=== PATIENT | female | born 1975 | race Caucasian/White ===

== ENCOUNTER 2017-04-17 14:20 | Emergency (ER) | payer OTHER ==
[2017-04-17 15:16] LABS: INFLUENZA A PATIENT NEGATIVE (NEGATIVE); INFLUENZA B PATIENT NEGATIVE (NEGATIVE); OBC FLU VALID
== END 2017-04-17 15:32 | disposition home or self-care (01) ==
LOC: ER 14:20
DX: B34.9 Viral infection, unspecified (principal); Z88.6 Allergy status to analgesic agent; Z90.49 Acquired absence of other specified parts of digestive tract; Z98.51 Tubal ligation status
CPT/HCPCS: 87804; 87804-59; 99284

== ENCOUNTER 2018-07-05 12:37 | Emergency (ER) | payer OTHER ==
[~2018-07-05] VITALS: Ht 157.5 cm; Wt 79.4 kg
[~2018-07-05 12:37] MED LIST: ACET325T9 PO; ASPI-482 PO; DIPH25CA58 PO; FEXO1TAB27 PO; FLUT9.9S NS; HYDR-3164 PO; LORA10TA68 PO; OSEL75CA PO
--- NOTE | 2018-07-05 13:51 | PHYS DOC ---
Past Medical History Past Medical History: No Pertinent History Past Surgical History: Cholecystectomy, Tubal ligation Additional Past Surgical Histo: D&C Alcohol Use: Occasionally Drug Use: None Adult General Chief Complaint Chief Complaint: HEADACHE HPI HPI Patient is a 43 year old female who presents with complaining of headache. Patient complaining of global headache for the last 3 days after she woke up as a constant and throbbing pain with radiation to her ear and head and neck without nausea, fever and chills, focal neuro deficit, head injury or history of migraine headache. Patient complaining of mild photophobia. Patient states she took [id number] pain medication without improvement of her pain and rated her pain 7/10. Review of Systems Review of Systems Constitutional: Denies fever or chills [] Eyes: Denies change in visual acuity, redness, or eye pain [] HENT: Denies nasal congestion or sore throat [] Respiratory: Denies cough or shortness of breath [] Cardiovascular: No additional information not addressed in HPI [] GI: Denies abdominal pain, nausea, vomiting, bloody stools or diarrhea [] : Denies dysuria or hematuria [] Musculoskeletal: Denies back pain or joint pain [] Integument: Denies rash or skin lesions [] Neurologic: Reports headache, denies focal weakness or sensory changes [] Endocrine: Denies polyuria or polydipsia [] All other systems were reviewed and found to be within normal limits, except as documented in this note. Current Medications Current Medications Current Medications Medications (Trade) Dose Ordered Sig/Rodri Start Time Stop Time Status Last Admin Dose Admin Dexamethasone Sodium Phosphate (Decadron) 4 mg 1X ONCE 07/05/18 14:15 07/05/18 14:16 DC 07/05/18 14:03 4 MG Diphenhydramine HCl (Benadryl) 25 mg 1X ONCE 07/05/18 14:15 07/05/18 14:16 DC 07/05/18 14:04 25 MG Fentanyl Citrate (Fentanyl 2ml Vial) 50 mcg 1X ONCE 07/05/18 14:15 07/05/18 14:16 DC 07/05/18 14:03 50 MCG Sodium Chloride 1,000 ml @ 1,000 mls/hr 1X ONCE 07/05/18 14:00 07/05/18 14:59 DC 07/05/18 14:04 1,000 MLS/HR Allergies Allergies Allergies Coded Allergies Type Severity Reaction Last Updated Verified NSAIDS (Non-Steroidal Anti-Inflamma Allergy Intermediate bronchial spasms 01/29/14 Yes Physical Exam Physical Exam Constitutional: Well developed, well nourished, mild distress, non-toxic appearance. [] HENT: Normocephalic, atraumatic, oropharynx moist, no oral exudates, nose normal. [] Eyes: PERRLA, EOMI, conjunctiva normal, no discharge. [] Neck: Normal range of motion, no tenderness, supple, no stridor, negative meningeal sign. [] Cardiovascular:Heart rate regular rhythm, no murmur [] Lungs & Thorax: Bilateral breath sounds clear to auscultation [] Abdomen: Bowel sounds normal, soft, no tenderness, no masses, no pulsatile masses. [] Skin: Warm, dry, no erythema, no rash. [] Back: No tenderness, no CVA tenderness. [] Extremities: No tenderness, no cyanosis, no clubbing, ROM intact, no edema. [] Neurologic: Alert and oriented X 3, normal motor function, normal sensory function, no focal deficits noted. [] Psychologic: Affect normal, judgement normal, mood normal. [] Current Patient Data Vital Signs Vital Signs Date Time Temp Pulse Resp B/P (MAP) Pulse Ox O2 Delivery O2 Flow Rate FiO2 07/05/18 13:05 97.8 82 18 117/66 (83) 97 Room Air 97.8 Lab Values Laboratory Tests Test 07/05/18 13:17 White Blood Count 12.2 x10^3/uL (4.0-11.0) H Red Blood Count 4.67 x10^6/uL (3.50-5.40) Hemoglobin 13.6 g/dL (12.0-15.5) Hematocrit 41.7 % (36.0-47.0) Mean Corpuscular Volume 89 fL (79-100) Mean Corpuscular Hemoglobin 29 pg (25-35) Mean Corpuscular Hemoglobin Concent 33 g/dL (31-37) Red Cell Distribution Width 13.0 % (11.5-14.5) Platelet Count 279 x10^3/uL (140-400) Neutrophils (%) (Auto) 66 % (31-73) Lymphocytes (%) (Auto) 28 % (24-48) Monocytes (%) (Auto) 4 % (0-9) Eosinophils (%) (Auto) 2 % (0-3) Basophils (%) (Auto) 1 % (0-3) Neutrophils # (Auto) 8.0 x10^3uL (1.8-7.7) H Lymphocytes # (Auto) 3.4 x10^3/uL (1.0-4.8) Monocytes # (Auto) 0.4 x10^3/uL (0.0-1.1) Eosinophils # (Auto) 0.3 x10^3/uL (0.0-0.7) Basophils # (Auto) 0.1 x10^3/uL (0.0-0.2) Sodium Level 135 mmol/L (136-145) L Potassium Level 3.5 mmol/L (3.5-5.1) Chloride Level 98 mmol/L (98-107) Carbon Dioxide Level 27 mmol/L (21-32) Anion Gap 10 (6-14) Blood Urea Nitrogen 9 mg/dL (7-20) Creatinine 0.7 mg/dL (0.6-1.0) Estimated GFR (Cockcroft-Gault) 90.5 BUN/Creatinine Ratio 13 (6-20) Glucose Level 281 mg/dL (70-99) H Calcium Level 8.6 mg/dL (8.5-10.1) Total Bilirubin 0.2 mg/dL (0.2-1.0) Aspartate Amino Transferase (AST) 11 U/L (15-37) L Alanine Aminotransferase (ALT) 11 U/L (14-59) L Alkaline Phosphatase 126 U/L (46-116) H Total Protein 6.8 g/dL (6.4-8.2) Albumin 3.0 g/dL (3.4-5.0) L Albumin/Globulin Ratio 0.8 (1.0-1.7) L Laboratory Tests 07/05/18 13:17 Laboratory Tests 07/05/18 13:17 EKG EKG [] Radiology/Procedures Radiology/Procedures [] Course & Med Decision Making Course & Med Decision Making Pertinent Labs and Imaging studies reviewed. (See chart for details) Evaluation of patient in ER showed 43-year-old female patient complaining of headache for 3 days. Patient had unremarkable physical exam. CT of head showed sinusitis without acute intracranial finding. Labs showed blood sugar of 281 without history of diabetes mellitus. Patient signed family history of diabetes mellitus and wants to check her blood sugar frequently and follow up with her primary care physician. Patient felt better with treatment in ER and rated her pain 3/10 at time of discharge. Dragon Disclaimer Dragon Disclaimer This electronic medical record was generated, in whole or in part, using a voice recognition dictation system. Departure Departure Impression: Primary Impression: Sinusitis Additional Impressions: Headache Hyperglycemia Elevated liver function tests Disposition: HOME, SELF-CARE (at 1455) Condition: IMPROVED Referrals: NO PCP (PCP) Patient Instructions: General Headache Without Cause, Hyperglycemia, Sinusitis Additional Instructions: Drink plenty of liquids Follow-up with your primary care physician in 3-5 days Return to ER if not getting better Take with your blood sugar and follow up with her primary care physician for possible treatment of diabetes mellitus Scripts Tramadol Hcl (ULTRAM) 50 Mg Tablet 50 MG PO Q6HRS PRN for PAIN, #14 TAB 0 Refills Prov: FREDRICK VITALE MD 07/05/18 Amoxicillin/Potassium Clav (AUGMENTIN 875-125 TABLET) 1 Each Tablet 1 TAB PO Q12HR, #20 TAB Prov: FREDRICK VITALE MD 07/05/18 Problem Qualifiers Primary Impression: Sinusitis Sinusitis location: unspecified location Chronicity: unspecified Qualified Codes: J32.9 - Chronic sinusitis, unspecified Additional Impressions: Headache Headache type: unspecified Headache chronicity pattern: unspecified pattern Intractability: not intractable Qualified Codes: R51 - Headache FREDRICK VITALE MD July 05, 2018 13:51
[2018-07-05 13:55] LABS: BASO # 0.1 x10^3/uL (0.0-0.2); BASO % 1 % (0-3); EOS # 0.3 x10^3/uL (0.0-0.7); EOS % 2 % (0-3); HEMATOCRIT 41.7 % (36.0-47.0); HEMOGLOBIN 13.6 g/dL (12.0-15.5); LYMPH # 3.4 x10^3/uL (1.0-4.8); LYMPH % 28 % (24-48); MEAN CORPUSCULAR HEMOGLOBIN 29 pg (25-35); MEAN CORPUSCULAR HGB CONC 33 g/dL (31-37); MEAN CORPUSCULAR VOLUME 89 fL (79-100); MONO # 0.4 x10^3/uL (0.0-1.1); MONO % 4 % (0-9); NEUT % 66 % (31-73); PLATELET COUNT 279 x10^3/uL (140-400); RED BLOOD COUNT 4.67 x10^6/uL (3.50-5.40); WHITE BLOOD COUNT 12.2 x10^3/uL (4.0-11.0)
[2018-07-05] MEDS ORDERED: IV NORMAL SALINE 1000ML BAG 1,000 ML IV ONE (14:00)
[2018-07-05 14:09] LABS: CALCIUM 8.6 mg/dL (8.5-10.1); CREATININE 0.7 mg/dL (0.6-1.0); GFR 90.5; POTASSIUM 3.5 mmol/L (3.5-5.1)
[2018-07-05 14:14] LABS: ALBUMIN/GLOBULIN RATIO 0.8 (1.0-1.7); TOTAL BILIRUBIN 0.2 mg/dL (0.2-1.0); TOTAL PROTEIN 6.8 g/dL (6.4-8.2)
[2018-07-05] MEDS ORDERED: fentaNYL PF VIAL 100 MCG/2 ML VIAL IV ONE (14:15)
[2018-07-05] MEDS ORDERED: DEXAMETHASONE SOD PHOS 4 MG/ML VIAL IV ONE (14:15)
[2018-07-05] MEDS ORDERED: diphenhydrAMINE 50 MG/ML VIAL IVP ONE (14:15)
--- NOTE | 2018-07-05 14:23 | RAD ---
CT of the head without contrast, 07/05/2018: HISTORY: Headache Noncontrast scans were obtained with multiplanar reconstructions produced. The ventricles are within normal limits in size. There is no shift of the midline structures. There is no evidence of acute intracranial hemorrhage or mass effect. There is an air-fluid level in the left sphenoid sinus. There is partial opacification of both ethmoid sinuses and the left frontal sinus. There is mild mucosal thickening in both maxillary sinuses. The nasal turbinates are swollen. IMPRESSION: 1. No acute intracranial abnormality is detected. 2. Bilateral paranasal sinusitis. PQRS Compliance Statement: One or more of the following individualized dose reduction techniques were utilized for this examination: 1. Automated exposure control 2. Adjustment of the mA and/or kV according to patient size 3. Use of iterative reconstruction technique Electronically signed by: Kevyn Valencia MD (07/05/2018 2:21 PM) [facility]
[2018-07-05] MEDS ORDERED: AMOX1TAB61 PO (14:59)
[2018-07-05] MEDS ORDERED: TRAM-48 PO (14:59)
[2018-07-05 15:30] VITALS: BP 119/61
== END 2018-07-05 16:48 | disposition home or self-care (01) ==
LOC: ER 12:37
DX: J32.9 Chronic sinusitis, unspecified (principal); R51 Headache; R73.9 Hyperglycemia, unspecified; R79.89 Other specified abnormal findings of blood chemistry; Z88.6 Allergy status to analgesic agent
CPT/HCPCS: 36415; 70450; 80053; 85025; 96374; 96375; 99285; J1100; J1200; J3010; J7030

== ENCOUNTER → 2018-07-26 | Outpatient (CLI) | payer OTHER ==
[2018-07-05 15:30] VITALS: BP 119/61
[~2018-07-26] MED LIST changes: +AMOX1TAB61 PO; +TRAM-48 PO
[2018-07-26 12:11] LABS: ALBUMIN 3.2 g/dL (3.4-5.0); ALBUMIN/GLOBULIN RATIO 0.8 (1.0-1.7); CHOLESTEROL/HDL RATIO 6.4; CREATININE 0.7 mg/dL (0.6-1.0); GFR 90.5; POTASSIUM 3.9 mmol/L (3.5-5.1); TOTAL BILIRUBIN 0.1 mg/dL (0.2-1.0); TOTAL PROTEIN 7.2 g/dL (6.4-8.2)
[2018-07-26 13:32] LABS: BILIRUBIN,URINE NEGATIVE (NEG); CLARITY,URINE CLEAR; COLOR,URINE YELLOW; NITRITE,URINE NEGATIVE (NEG); PROTEIN,URINE NEGATIVE (NEG-TRACE); UROBILINOGEN,URINE 0.2 mg/dL (0.2 mg/dL)
[2018-07-26 13:37] LABS: RBC,URINE 0 /HPF (0-2)
[2018-07-26 13:38] LABS: BACTERIA,URINE FEW /HPF (0-FEW); SQUAMOUS EPITHELIAL CELL,UR MANY /LPF; WBC,URINE RARE /HPF (0-4); YEAST,URINE PRESENT /HPF
[2018-07-27 00:08] LABS: CREAT RD UR 206.3 mg/dL (Not Estab.); MICRO CREAT RATIO 7.9 mg/g creat (0.0-30.0); MICROALB RD UR 16.4 ug/mL (Not Estab.)
[2018-07-27 15:10] LABS: HEMOGLOBIN A1C 10.8 % (4.8-5.6)
== END | disposition home or self-care (01) ==
LOC: LAB 11:29
PROVIDERS: ATTEND Family Medicine
DX: E11.9 Type 2 diabetes mellitus without complications (principal); Z88.6 Allergy status to analgesic agent
CPT/HCPCS: 36415; 80053; 80061; 81001; 82043; 82570; 83036

== ENCOUNTER → 2018-12-06 | Outpatient (CLI) | payer OTHER ==
[2018-09-24 20:32] VITALS: BP 125/53
[~2018-12-06] MED LIST changes: +ALBU2.5V8 INH; +HYDR5SUS PO
[2018-12-06 14:32] LABS: ALBUMIN 3.6 g/dL (3.4-5.0); ALBUMIN/GLOBULIN RATIO 0.8 (1.0-1.7); CALCIUM 9.2 mg/dL (8.5-10.1); CREATININE 0.7 mg/dL (0.6-1.0); GFR 90.5; POTASSIUM 3.9 mmol/L (3.5-5.1); TOTAL BILIRUBIN 0.3 mg/dL (0.2-1.0)
[2018-12-07 00:07] LABS: HEMOGLOBIN A1C 7.2 % (4.8-5.6)
== END | disposition home or self-care (01) ==
LOC: LAB 13:51
PROVIDERS: ATTEND Family Medicine
DX: E11.65 Type 2 diabetes mellitus with hyperglycemia (principal)
CPT/HCPCS: 36415; 80053; 83036

== ENCOUNTER → 2019-01-28 | Outpatient (CLI) | payer OTHER ==
[2018-09-24 20:32] VITALS: BP 125/53
--- NOTE | 2019-01-29 08:44 | KCIC ---
Examination: CT MAXILLOFACIAL WO CONTRAST History: Chronic sinusitis Comparison/Correlation: None Findings: Maxillofacial CT exam was performed without contrast. Sagittal and coronal reformatted images were provided. Globes and optic optic nerves are normal. Extensive patchy opacification of the ethmoid cells noted. Small left maxillary sinus mucous retention cyst or polyp is present. Minimal mucosal thickening in the right maxillary sinus. Complete opacification of the maxillary sinus ostia bilaterally is noted. Sphenoid sinuses are unremarkable. Mastoid air cells are unremarkable. Dental caries are noted. Absence of multiple prominence noted. Impression: Chronic paranasal sinusitis with particular involvement of the ethmoid air cells and maxillary sinuses. No fluid level to suggest acute sinusitis. Dental caries. PQRS Compliance Statement: One or more of the following individualized dose reduction techniques were utilized for this examination: 1. Automated exposure control 2. Adjustment of the mA and/or kV according to patient size 3. Use of iterative reconstruction technique Electronically signed by: Petros Carvalho MD (01/29/2019 8:41 AM) [facility]
== END | disposition home or self-care (01) ==
LOC: KCIC CT 08:41
PROVIDERS: ATTEND Family Medicine
DX: J32.8 Other chronic sinusitis (principal); K02.9 Dental caries, unspecified; E11.9 Type 2 diabetes mellitus without complications; F17.200 Nicotine dependence, unspecified, uncomplicated
CPT/HCPCS: 70486

== ENCOUNTER → 2019-02-13 | Day surgery (SDC) | payer OTHER ==
[~2019-02-13] VITALS: Ht 157.5 cm; Wt 77.1 kg
[~2019-02-13] MED LIST changes: +ACET325T21 PO; +ACETAMINOPHEN 325 MG TABLET. PO ONE; +AZEL137S3 NS; +DEXAMETHASONE SOD PHOS 4 MG/ML VIAL ONE; +EPINEPHrine 1 MG/ML VIAL INJ ONE; +EPINEPHrine VIAL 30 MG/30 ML VIAL ONE; +GLIP5TAB10 PO; +GLYCOPYRROLATE 1 MG/5 ML VIAL. ONE; +HYDROmorphone 2 MG/ML VIAL IV PRN; +IV RINGERS,LACTATED 1000ML 1,000 ML IV SCH; +LIDOCAINE 1%/EPI 1:100,000 20 ML VIAL. ONE; +LIDOCAINE 2% PF 5 ML VIAL. ONE; +METF500T16 PO; +MIDAZOLAM HCL/PF 2 MG/2 ML VIAL. ONE; +MORPHINE SULFATE 2 MG/ML VIAL. IV PRN; +MORPHINE SULFATE 2 MG/ML VIAL. ONE; +MUPI22OI2 NAS; +MUPIROCIN 2 % NASAL OINTMENT 22GM TUBE. ONE; +NEOSTIGMINE METHYLSULFATE 5 MG/5 ML SYRINGE. ONE; +ONDA4TAB12 PO; +ONDANSETRON PF 4 MG/2 ML VIAL. IV PRN; +ONDANSETRON PF 4 MG/2 ML VIAL. ONE; +OXYC5CAP PO; +OXYMETAZOLINE 0.05% NASAL SPRAY 30ML BOTTLE. NS ONE; +PHENYLEPHRINE 0.25% NASAL SPRAY 15ML BOTTLE. NS ONE; +PRED20TA PO; +PROCHLORPERAZINE 10 MG/2 ML VIAL. IV PRN; +PROPOFOL 20 ML IV ONE; +ROCURONIUM 50 MG/5 ML VIAL. ONE; +SEVOFLURANE > 120 MINUTES. IH ONE; +TRIAMCINOLONE ACETONIDE 40 MG/ML VIAL. IM ONE; +VARE1TAB21 PO; +fentaNYL PF VIAL 100 MCG/2 ML VIAL IV PRN; +fentaNYL PF VIAL 100 MCG/2 ML VIAL ONE; +oxyCODONE IR 5 MG TABLET PO ONE
[2019-02-13] MEDS: INSULIN LISPRO 100 UNIT/ML 3ML VIAL for OP,RR ONLY. SQ PRN ×2 (15:15→19:04)
--- NOTE | 2019-02-13 19:11 | PDOC4 ---
IMMEDIATE POST OP NOTE Date: Feb 13, 2019 Pre-Op Diagnosis nasal polyps, chronic pansinusitis, bilateral inferior turbinate hypertrophy Post-Op Diagnosis same as above Procedure Performed bilateral FESS under Image Guided Navigation to include bilateral nasal polypectomy, bilateral medial maxillary antrostomy, bilateral total ethmoidectomy, bilateral sphenoidotomy, bilateral frontal sinusotomy; bilateral inferior turbinate reduction Surgeon Dr. Rhoda Clark Surgical Elastic Knitter none Anesthesiologist Dr. Braden Anesthesia Type: General Blood Loss 75mL Specimens Obtained left and right nasal cavity polyps Findings 1. Severe polyps filling nasal cavity bilaterally. Also involving all sinuses bilaterally (most notably ethmoids) 2. Bilateral inferior turbinate hypertrophy Complications none Operative Note Dictation #[id number] RHODA CLARK MD Feb 13, 2019 19:11
[2019-02-13 19:40] VITALS: BP 133/72
--- NOTE | 2019-02-13 19:41 | OP ---
DATE OF SURGERY: 02/13/2019 PREOPERATIVE DIAGNOSES: Nasal polyps, chronic pansinusitis, and bilateral inferior turbinate hypertrophy. POSTOPERATIVE DIAGNOSES: Nasal polyps, chronic pansinusitis, and bilateral inferior turbinate hypertrophy. PROCEDURES PERFORMED: Bilateral functional endoscopic sinus surgery under image-guidance navigation to include bilateral nasal polypectomy, bilateral medial maxillary antrostomy, bilateral total ethmoidectomy, bilateral sphenoidotomy, bilateral frontal sinusotomy, and also bilateral inferior turbinate reduction. SURGEON: Rhoda Clark MD ANESTHESIA: General endotracheal anesthesia. ANESTHESIOLOGIST: Dr. Garcia INDICATIONS FOR SURGERY: The patient is a 43-year-old female with a history of chronic bilateral nasal airway obstruction that has been refractory to medical management. Nasal endoscopy showed severe nasal polyposis completely filling the nasal cavity bilaterally and this opacification of the nasal cavity and sinuses were seen on CT imaging. The decision was made for the patient to undergo above procedure after risks, benefits, and alternatives of surgery were thoroughly discussed with the patient and informed consent was obtained. ESTIMATED BLOOD LOSS: 75 mL. SPECIMEN: Left and right nasal cavity. Polyps were sent for permanent pathology. INTRAOPERATIVE FINDINGS: 1. Severe polyps extending from and surrounding the middle turbinate bilaterally, which was 100% obstructive of the nasal cavity bilaterally. 2. Polypoid inflammation involving all of the sinuses, but the most prominently noted within the anterior and posterior ethmoid sinuses bilaterally. 3. Bilateral inferior turbinate hypertrophy. DESCRIPTION OF THE PROCEDURE: The patient was brought back to room per anesthesia and intubated in the standard fashion. The patient was then turned 90 degrees in the room. The anterior septum and anterior aspect of the inferior turbinates were injected with 1% lidocaine with 1:100,000 epinephrine and approximately 6 mL in total were injected. Eliceo-Synephrine soaked pledgets were then placed within the nasal cavity bilaterally. The [employer] image guidance system was set up and verified for accuracy. This was used throughout the case to ensure complete dissection and for the patient's safety. The patient was then prepped and draped in the standard fashion. Using a 30-degree scope, I visualized the patient's left and right nasal cavity. On the left side, the septum was not deviated enough to warrant a septoplasty on either side. I then used the left side and I have noticed that there were polyps extending from the bilateral aspect of the middle turbinate and 100% obstructive of the nasal airway. I took several biopsies and sent this for permanent pathology. I then used the microdebrider to completely excise the polyps from the middle turbinate and middle meatus. There was some extending from the superior septum and the mucosa of the superior septum was cut down until there was no polypoid inflammation remaining. Middle turbinate was then medialized with a Vancouver elevator. I further removed the trell polyps from the middle meatus. I identified the uncinate process and using a backbiter forceps, I resected the most inferior portion of the vertical process of the uncinate. The vertical and horizontal process of the uncinate was then medialized and completely resected. The ostia of the maxillary sinus was identified. This was saved with significant polypoid inflammation. This was widened both anteriorly and posteriorly with sharp dissection until it was widely patent. There were no trell polyps within the maxillary sinus itself only at the outflow tract. I then performed a total ethmoidectomy in standard fashion. Using the microdebrider, I cut through the medial inferior plane of the anterior ethmoid bulla. There were polyps filling the ethmoid sinuses. I continued my dissection in this plane posteriorly until I came with the face of the sphenoid sinus. At the face of the sphenoid sinus, I dissected into the natural opening of the sphenoid sinus just medial and inferior to the inferior aspect of the superior turbinate. Using sharp dissection, there was polypoid inflammation of the opening. I used sharp dissection to open this superiorly to the skull base and laterally to the lamina papyracea. I also used a downbiting Kerrison forceps to resect it inferiorly. In doing so, I did encounter the posterior septal branch of the sphenopalatine artery and this was cauterized using Bovie electrocautery. I then again used a 30-degree scope to visualize the skull base. Traveling from a posterior to anterior direction, I removed all the ethmoid air cells off the skull base posteriorly and the lamina laterally. Anteriorly, I identified the frontal sinus outflow tract. There were polyps extending from this. These were debrided with the curved microdebrider. By removing the suprabullar ethmoid air cell posteriorly and the posterior wall of the agger nasi cell anteriorly, I could widely open the frontal sinus outflow tract. Topical epinephrine was placed for several minutes for hemostasis. The middle turbinate was bulgerized to the septum. A Propel contour implant was placed within the frontal sinus outflow tract and a Propel standard implant was placed within the posterior ethmoid sinuses, which did hold the middle turbinate over medially. My attention was then taken to the right nasal cavity. I again began with a 30-degree scope. The patient was found to have significant polyps emanating from the middle meatus on this side and multiple biopsies were taken and sent for permanent pathology. I then further used the microdebrider to resect all of the polyps from the nasal cavity, which was 100% obstructive posteriorly. There were polyps extending from the sphenoethmoidal recess as well as the middle meatus and I completely debrided them. Once the middle turbinate was identified and had a relatively normal appearance, I medialized this using a Vancouver elevator. I then identified the uncinate process. Using a backbiter forceps, I resected the most inferior portion of the vertical process of the uncinate. The vertical and horizontal processes of the uncinate were then medialized and completely resected. The natural os of the maxillary sinus was identified. This was again filled with polypoid inflammation, which was debrided. The maxillary antrostomy was widened both anteriorly and posteriorly until it was widely patent. There were no polyps involving the mucosa of the maxillary sinus inferiorly or laterally. I then performed a complete ethmoidectomy in a standard fashion. Beginning in the medial inferior plane, I dissected through the anterior ethmoid bulla. There were again polyps filling the ethmoid air cells, both anteriorly and posteriorly. I continued to debride through them. Posteriorly, I identified the face of the sphenoid sinus. I dissected through the posterior aspect of the middle turbinate, identified the superior turbinate, and identified the natural ostia of the sphenoid sinus, just inferior and medial to the superior turbinate. This had polypoid inflammation and again was widened superiorly to the skull base and laterally to the lamina papyracea using sharp dissection. I also used a downbiting Kerrison forceps to resect the sphenoid ostia inferiorly. In doing so, I did encounter the posterior septal branch of the sphenopalatine artery, and once the sphenoid ostium was widely patent, I used suction Bovie electrocautery inferiorly for hemostasis. I then again used a 30-degree scope to visualize the skull base. I removed all of the ethmoid air cells off the skull base superiorly and laterally off the lamina papyracea traveling from a posterior to anterior direction. Anteriorly, I identified the frontal sinus outflow tract. This had significant polypoid inflammation emanating from it and this was debrided using the microdebrider by removing the suprabullar ethmoid air cell posteriorly and the posterior wall of the agger nasi cell anteriorly. The frontal sinus outflow tract was deemed to be widely patent. I again placed topical epinephrine for several minutes for hemostasis after all the polyps were removed. I then placed a Propel contour implant within the frontal sinus outflow tract and a Propel standard implant within the posterior ethmoid sinuses, which did a good job of medializing the uncinate process, which had been bulgerized to the septum. I then performed a bilateral inferior turbinate reduction. Beginning on the left side, I used the microdebrider to cut into the anterior aspect of the inferior turbinate. I then resected the excess mucosa along the entire length of the inferior turbinate along its lateral and inferior border also resecting the posterior mulberry tissue. I used the suction Vancouver to elevate the residual mucosa off the most inferior portion of the turbinate bone. I performed a conservative resection of the superior portion of the bone using Kiran-Cut forceps. The residual mucosa was then trimmed and redraped the residual turbinate bone. The residual bone was outfractured. Suction Bovie electrocautery was used to cut mucosa along the entire length of the inferior turbinate for hemostasis. I also used the suction Bovie electrocautery along the mulberry tissue for hemostasis posteriorly. After this was completed, the nasal airway was widely patent. An identical procedure was performed on the right side. The nasal cavity was then thoroughly aspirated. The patient was turned back over to anesthesia and extubated without complication. Our sponge, needle, and instrument counts were correct at the end of the case. COMPLICATIONS: None. DISPOSITION: Stable and transferred to recovery room. RHODA CLARK MD DR: DEO/sydnie JOB#: [id number] / [id number]
--- NOTE | 2019-02-17 15:07 | PATHOLOGY ---
[facility] Accession Number: [id number] . 01 Material submitted: . PART A: nasal cavity - LEFT NASAL CAVITY POLYP. Modifiers: left PART B: nasal cavity - RIGHT NASAL CAVITY POLYP. Modifiers: right . 01 Clinical history: . Chronic sinusitis. . 02 Diagnosis: A. Segments of respiratory mucosa, left nasal cavity: - Inflammatory nasal polyp showing acute and chronic inflammation with increased eosinophils. . B. Segments of respiratory mucosa, right nasal cavity: - Inflammatory nasal polyp showing acute and chronic inflammation with increased eosinophils. . (JPM:mm; 02/17/2019) [facility] 02/17/2019 1223 Local . 02 Electronically signed: . Harrison Black MD, Pathologist NPI- [id number] . 01 Gross description: . A. Received in formalin labeled "Bessy Antonio, left nasal cavity polyp" is a 1.0 x 0.6 x 0.2 cm aggregate of puentes-yellow rubbery tissue. The specimen is submitted in cassette A1. . B. Received in formalin labeled "Antonio, Bessy, right nasal cavity polyp" is a portion of puentes-yellow rubbery tissue measuring 1.3 x 1.0 x 0.2 cm. The specimen is submitted without sectioning in cassette B1. ([facility]; 02/16/2019) [facility] 02/16/2019 1117 Local . 02 Pathologist provided ICD-10: J33.9, J31.0 . 02 CPT . 859181, 572419 Specimen Comment: A courtesy copy of this report has been sent to [phone], [phone] Specimen Comment: [id number] Specimen Comment: Report sent to / DR ACEVEDO Performed at: 01 [facility] [address], [place], [place] [id number] MD Harpreet Jalloh MD Phone: [phone] Performed at: [address] [facility] [id number] [place], [place] [id number] MD Harrison Black MD Phone: [phone]
== END ==
LOC: SURG 14:33
PROVIDERS: ATTEND Otolaryngology
DX: J34.3 Hypertrophy of nasal turbinates (principal); J32.4 Chronic pansinusitis; J32.0 Chronic maxillary sinusitis; J32.1 Chronic frontal sinusitis; J32.2 Chronic ethmoidal sinusitis; J32.3 Chronic sphenoidal sinusitis; J33.8 Other polyp of sinus; F17.210 Nicotine dependence, cigarettes, uncomplicated; E11.9 Type 2 diabetes mellitus without complications; E66.9 Obesity, unspecified; Z68.31 Body mass index [BMI] 31.0-31.9, adult; Z90.49 Acquired absence of other specified parts of digestive tract; Z79.899 Other long term (current) drug therapy; Z98.51 Tubal ligation status; Z79.84 Long term (current) use of oral hypoglycemic drugs
CPT/HCPCS: 30140; 31253; 31256; 31257; 81025; 82962; 88305; A7015; C1713; J0171; J0690; J1100; J2001; J2250; J2270; J2405; J2704; J2710; J3010; J3301; J3490; J7030; J7120

== ENCOUNTER → 2019-08-19 | Outpatient (CLI) | payer OTHER ==
[2019-02-13 19:40] VITALS: BP 133/72
[~2019-08-19] MED LIST changes: -ACETAMINOPHEN 325 MG TABLET. PO ONE; -DEXAMETHASONE SOD PHOS 4 MG/ML VIAL ONE; -EPINEPHrine 1 MG/ML VIAL INJ ONE; -EPINEPHrine VIAL 30 MG/30 ML VIAL ONE; -GLYCOPYRROLATE 1 MG/5 ML VIAL. ONE; -HYDROmorphone 2 MG/ML VIAL IV PRN; -IV RINGERS,LACTATED 1000ML 1,000 ML IV SCH; -LIDOCAINE 1%/EPI 1:100,000 20 ML VIAL. ONE; -LIDOCAINE 2% PF 5 ML VIAL. ONE; -MIDAZOLAM HCL/PF 2 MG/2 ML VIAL. ONE; -MORPHINE SULFATE 2 MG/ML VIAL. IV PRN; -MORPHINE SULFATE 2 MG/ML VIAL. ONE; -MUPIROCIN 2 % NASAL OINTMENT 22GM TUBE. ONE; -NEOSTIGMINE METHYLSULFATE 5 MG/5 ML SYRINGE. ONE; -ONDANSETRON PF 4 MG/2 ML VIAL. IV PRN; -ONDANSETRON PF 4 MG/2 ML VIAL. ONE; -OXYMETAZOLINE 0.05% NASAL SPRAY 30ML BOTTLE. NS ONE; -PHENYLEPHRINE 0.25% NASAL SPRAY 15ML BOTTLE. NS ONE; -PROCHLORPERAZINE 10 MG/2 ML VIAL. IV PRN; -PROPOFOL 20 ML IV ONE; -ROCURONIUM 50 MG/5 ML VIAL. ONE; -SEVOFLURANE > 120 MINUTES. IH ONE; -TRIAMCINOLONE ACETONIDE 40 MG/ML VIAL. IM ONE; -fentaNYL PF VIAL 100 MCG/2 ML VIAL IV PRN; -fentaNYL PF VIAL 100 MCG/2 ML VIAL ONE; -oxyCODONE IR 5 MG TABLET PO ONE
[2019-08-19 07:57] LABS: BILIRUBIN,URINE NEGATIVE (NEG); CLARITY,URINE CLEAR; COLOR,URINE YELLOW; NITRITE,URINE NEGATIVE (NEG); PH,URINE 5.5 (<5.0-8.0); PROTEIN,URINE NEGATIVE (NEG-TRACE); UROBILINOGEN,URINE 0.2 mg/dL (0.2 mg/dL)
[2019-08-19 08:05] LABS: SQUAMOUS EPITHELIAL CELL,UR MANY /LPF
[2019-08-19 08:06] LABS: RBC,URINE OCC /HPF (0-2)
[2019-08-19 08:07] LABS: BACTERIA,URINE MODERATE /HPF (0-FEW); HYALINE CASTS, URINE OCCASIONAL /HPF
[2019-08-19 08:32] LABS: ALBUMIN 3.1 g/dL (3.4-5.0); ALBUMIN/GLOBULIN RATIO 0.8 (1.0-1.7); CALCIUM 8.5 mg/dL (8.5-10.1); CHOLESTEROL/HDL RATIO 6.1; CREATININE 0.7 mg/dL (0.6-1.0); GFR 90.1; TOTAL BILIRUBIN 0.1 mg/dL (0.2-1.0)
[2019-08-19 23:08] LABS: CREAT RD UR 214.5 mg/dL (Not Estab.); MICROALB RD UR 14.4 ug/mL (Not Estab.)
[2019-08-20 01:08] LABS: HEMOGLOBIN A1C 9.2 % (4.8-5.6)
== END | disposition home or self-care (01) ==
LOC: LAB 07:27
PROVIDERS: ATTEND Family Medicine
DX: E11.65 Type 2 diabetes mellitus with hyperglycemia (principal)
CPT/HCPCS: 36415; 80053; 80061; 81001; 82043; 82570; 83036; 87086

== ENCOUNTER → 2019-12-01 | Outpatient (CLI) | payer OTHER ==
[2019-02-13 19:40] VITALS: BP 133/72
[2019-12-01 09:27] LABS: ALBUMIN 3.4 g/dL (3.4-5.0); ALBUMIN/GLOBULIN RATIO 0.8 (1.0-1.7); CALCIUM 9.1 mg/dL (8.5-10.1); CREATININE 0.7 mg/dL (0.6-1.0); GFR 90.1; POTASSIUM 4.1 mmol/L (3.5-5.1); TOTAL BILIRUBIN 0.2 mg/dL (0.2-1.0); TOTAL PROTEIN 7.7 g/dL (6.4-8.2)
[2019-12-02 02:08] LABS: HEMOGLOBIN A1C 7.8 % (4.8-5.6)
== END ==
LOC: LAB 08:43
PROVIDERS: ATTEND Family Medicine
DX: E11.65 Type 2 diabetes mellitus with hyperglycemia (principal)
CPT/HCPCS: 36415; 80053; 83036

== ENCOUNTER → 2020-08-26 | Outpatient (CLI) | payer OTHER ==
[2019-02-13 19:40] VITALS: BP 133/72
[2020-08-26 09:16] LABS: BILIRUBIN,URINE NEGATIVE (NEG); CLARITY,URINE CLEAR; COLOR,URINE YELLOW; NITRITE,URINE NEGATIVE (NEG); PH,URINE 5.5 (<5.0-8.0); PROTEIN,URINE NEGATIVE (NEG-TRACE); UROBILINOGEN,URINE 0.2 mg/dL (0.2 mg/dL)
[2020-08-26 09:32] LABS: ALBUMIN 3.3 g/dL (3.4-5.0); ALBUMIN/GLOBULIN RATIO 0.8 (1.0-1.7); CALCIUM 8.7 mg/dL (8.5-10.1); CREATININE 0.7 mg/dL (0.6-1.0); GFR 89.7; POTASSIUM 4.7 mmol/L (3.5-5.1); TOTAL BILIRUBIN 0.2 mg/dL (0.2-1.0); TOTAL PROTEIN 7.2 g/dL (6.4-8.2)
[2020-08-26 10:06] LABS: BACTERIA,URINE FEW /HPF (0-FEW); RBC,URINE 0 /HPF (0-2)
[2020-08-26 15:13] LABS: CREAT RD UR 142.4 mg/dL (Not Estab.); MICROALB RD UR 11.7 ug/mL (Not Estab.)
[2020-08-27 02:15] LABS: HEMOGLOBIN A1C 8.4 % (4.8-5.6)
== END ==
LOC: LAB 07:47
PROVIDERS: ATTEND Family Medicine
DX: E11.65 Type 2 diabetes mellitus with hyperglycemia (principal)
CPT/HCPCS: 80053; 80061; 81001; 82043; 82570; 83036

== ENCOUNTER → 2021-03-30 | Outpatient (CLI) | payer OTHER ==
[2019-02-13 19:40] VITALS: BP 133/72
[2021-03-30 11:43] LABS: BILIRUBIN,URINE NEGATIVE (NEG); CLARITY,URINE CLEAR; COLOR,URINE YELLOW; NITRITE,URINE NEGATIVE (NEG); PROTEIN,URINE NEGATIVE (NEG-TRACE)
[2021-03-30 11:48] LABS: ALBUMIN 3.3 g/dL (3.4-5.0); ALBUMIN/GLOBULIN RATIO 0.8 (1.0-1.7); CALCIUM 8.3 mg/dL (8.5-10.1); CREATININE 0.6 mg/dL (0.6-1.0); GFR 107.2; POTASSIUM 4.2 mmol/L (3.5-5.1); TOTAL BILIRUBIN 0.3 mg/dL (0.2-1.0); TOTAL PROTEIN 7.6 g/dL (6.4-8.2)
[2021-03-30 11:50] LABS: CHOLESTEROL/HDL RATIO 5.2
[2021-03-30 11:51] LABS: BACTERIA,URINE FEW /HPF (0-FEW); RBC,URINE 0 /HPF (0-2)
[2021-03-30 21:08] LABS: CREAT RD UR 192.5 mg/dL (Not Estab.); MICROALB RD UR 15.5 ug/mL (Not Estab.)
[2021-03-31 04:10] LABS: HEMOGLOBIN A1C 7.8 % (4.8-5.6)
== END ==
LOC: LAB 11:10
PROVIDERS: ATTEND Family Medicine
DX: Z12.11 Encounter for screening for malignant neoplasm of colon (principal); E11.65 Type 2 diabetes mellitus with hyperglycemia; E78.5 Hyperlipidemia, unspecified
CPT/HCPCS: 80053; 80061; 81001; 82043; 82570; 83036

== ENCOUNTER 2021-07-18 19:02 | Emergency (ER) | payer OTHER ==
[~2021-07-18] VITALS: Ht 154.9 cm; Wt 75.9 kg
[2021-07-18] MEDS ORDERED: MORPHINE SULFATE 4 MG/ML INJ. IVP ONE (19:45)
[2021-07-18 19:57] LABS: BASO # 0.1 x10^3/uL (0.0-0.2); BASO % 1 % (0-3); EOS # 0.2 x10^3/uL (0.0-0.7); EOS % 1 % (0-3); HEMATOCRIT 42.8 % (36.0-47.0); HEMOGLOBIN 14.2 g/dL (12.0-15.5); LYMPH # 3.1 x10^3/uL (1.0-4.8); LYMPH % 20 % (24-48); MEAN CORPUSCULAR HEMOGLOBIN 30 pg (25-35); MEAN CORPUSCULAR HGB CONC 33 g/dL (31-37); MEAN CORPUSCULAR VOLUME 90 fL (79-100); MONO # 0.6 x10^3/uL (0.0-1.1); MONO % 4 % (0-9); NEUT # 11.5 x10^3/uL (1.8-7.7); NEUT % 74 % (31-73); PLATELET COUNT 340 x10^3/uL (140-400); RED BLOOD COUNT 4.77 x10^6/uL (3.50-5.40); RED CELL DISTRIBUTION WIDTH 13.3 % (11.5-14.5); WHITE BLOOD COUNT 15.5 x10^3/uL (4.0-11.0)
[2021-07-18 20:15] LABS: U PREG PATIENT NEGATIVE (NEG)
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
[2021-07-18 21:43] LABS: CALCIUM 8.7 mg/dL (8.5-10.1); CREATININE 0.7 mg/dL (0.6-1.0); GFR 89.3; POTASSIUM 3.8 mmol/L (3.5-5.1)
[2021-07-18] MEDS ORDERED: HYDR-2761 PO ×2 (21:49→22:34)
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
[2021-07-18 21:52] LABS: ALBUMIN/GLOBULIN RATIO 0.8 (1.0-1.7); TOTAL BILIRUBIN 0.3 mg/dL (0.2-1.0); TOTAL PROTEIN 6.9 g/dL (6.4-8.2)
[2021-07-18 22:11] VITALS: BP 116/64
== END 2021-07-18 22:41 | disposition home or self-care (01) ==
LOC: ER 19:02
DX: S00.83XA Contusion of other part of head, initial encounter (principal); M25.512 Pain in left shoulder; M79.631 Pain in right forearm; E11.9 Type 2 diabetes mellitus without complications; F17.200 Nicotine dependence, unspecified, uncomplicated; Z88.6 Allergy status to analgesic agent; V49.49XA Driver injured in collision with other motor vehicles in traffic accident, initial encounter; Y93.89 Activity, other specified; Y92.488 Other paved roadways as the place of occurrence of the external cause; Y99.8 Other external cause status
CPT/HCPCS: 36415; 70450; 70486; 72125; 73030; 73060; 73090; 80053; 81025; 83690; 85025; 96374; 99285; J2270